=== PATIENT | female | born 1945 | race Caucasian/White ===

== ENCOUNTER 2022-06-12 12:10 | Inpatient (IN) ==
--- NOTE | 2022-06-12 13:06 | Emergency Department Note ---
Impression & Plan SOB (shortness of breath), Atrial fibrillation, Anemia, Elevated troponin ED Provider Note INFORMANT: Patient ED PROVIDER(S): Kar Gomez MD CHIEF COMPLAINT: Shortness of breath and weakness PLAN: Disposition: Admitted Condition: Good Outpatient prescription management: none Referral: None MEDICAL DECISION MAKING: Patient presented because of shortness of breath and weakness. Work-up was initiated. She had a nonischemic ECG. Her cardiac monitoring revealed stable A-fib. Chest x-ray was negative for any obvious infiltrate. The patient is anemic but only slightly worse than last visit. No leukocytosis. Troponin and BNP were mildly elevated. This is concerning for a cardiac etiology to her shortness of breath symptoms. Clinically the patient does not require transfusion at this time but will need further work-up in the hospital given her significant shortness of breath with minimal exertion and declined. Consultation was made with the [facility] service. Patient was evaluated in the ER and admitted for further management. Discussed with manager adult After review of the information above and other included data, I feel the patie nt requires admission. Triage Nursing notes reviewed and agree them. Vital Signs: reviewed and remarkable for no significant abnormalities Prior /Outside records reviewed: none Differential diagnosis: Anemia, reactive airway disease, pneumonia, pneumothorax, COPD, CHF, infections, cardiac ischemia, pulmonary embolism, musculoskeletal, GI bleed, as well as other pathologies. Diagnostics, as interpreted by me: ECG: Twelve-lead ECG reveals atrial fibrillation at 82 bpm. There is a lateral T wave inversion present. No ectopy. No prior ECG for comparison. Cardiac Monitoring: Cardiac monitoring ordered by me: The patient was placed on continuous cardiac monitoring and observed. It revealed a atrial fibrillation at 87 bpm. Medical decision rules: none Imaging studies: Cardiomegaly and atelectasis noted on chest x-ray. Patient has no fever, white count, or symptoms to suggest pneumonia. HPI: The patient is a 77 year old female who presents to the Emergency Room with complaints of shortness of breath and weakness. This started acutely over the last 3 days and is worsening.. The patient also notes the following associated symptoms, conversational dyspnea, fatigue. The patient has been using iron for relieving factors. Current pain is rated as 0 /10. patient has history of anemia. She also is anticoagulated. Patient had outpatient labs done last week and they showed a moderate anemia with hemoglobin of 8.3. She was then seen in the emergency department and repeat hemoglobin was stable. Patient states that she actually felt a little bit better the several days after the ED visit but then started to feel worse about 3 days ago. Pt denies LOC, headache, fevers, chills, diaphoresis, visual changes, neck pain, chest pain, nausea, vomiting, abdominal pain, back pain, current melena, hematochezia, urinary symptoms, numbness, lymphadenopathy, rash, or other complaints. PAST MEDICAL HISTORY: See Below, A-fib PAST SURGICAL HISTORY: See Below, carotid endarterectomy SOCIAL HISTORY: See Below, retired HOME MEDICATIONS: See Below ALLERGIES: See Below VITALS: See Below PHYSICAL EXAMINATION: GENERAL: Awake, alert, tired mildly pale-appearing, in no distress HENT: Normocephalic, atraumatic. Oropharynx unremarkable. EYES: Mildly pale conjunctiva. Sclera non-icteric. NECK: Inspection normal. Non-tender. Supple. No nuchal rigidity. FROM. No masses. RESPIRATORY: Clear to auscultation. No wheezes. No rales. Normal respiratory effort. CARDIAC: Normal rate. Normal rhythm. No murmurs. No rubs. Extremities warm and well perfused. Pulses equal. No JVD. GI: Soft, non-distended. No tenderness to palpation. No rebound or guarding. No masses. RECTAL: Deferred. MUSCULOSKELETAL: Atraumatic. Chest examination reveals no tenderness. The back is symmetrical on inspection without obvious abnormality. There is no CVA tenderness to palpation. No joint edema. LOWER EXTREMITIES: Calves are equal size bilaterally and non-tender. No edema. No discoloration. NEURO: Normal sensorium. No sensory or motor deficits noted. SKIN: No rash or jaundice noted. Past Med/Surg History Medical History Anxiety Atrial fibrillation Benign essential hypertension Cardiomyopathy Carotid stenosis, bilateral CKD stage 3 due to type 2 diabetes mellitus Dyslipidemia Hypothyroidism Intracranial vascular disease Major depressive disorder Mitral regurgitation and mitral stenosis Pulmonary hypertension Severe obesity Type 2 diabetes mellitus Vitamin D deficiency Surgical History H/O endarterectomy LEFT SIDE History of partial hysterectomy Status post trigger finger release Family History Father Colorectal cancer Mother Cancer Social History Smoking Status: Never smoker Hx Alcohol Use: No Hx Substance Use: No Preferred Language: Bruneian Visual Impairment: Limited Hearing Ability: Normal marital status: / Current Living Situation: Alone current occupational status: employed Other Information That Helps Us Care for You: No Feels Safe at Home: Yes Safety Concerns: Feels Safe At This Time Childhood Exposure to Second-Hand Smoke: No Dental Care, Regularly: No Physical Activity Frequency: Does not Exercise Seatbelt Use: always Sunscreen Use: Yes Assistive Devices: Denture - Upper, Denture - Lower and Glasses Allergies Allergies Allergy/AdvReac Type Severity Reaction Status Date / Time tizanidine Allergy Severe Edema Verified 05/31/22 10:25 face/lips/tongue sulfamethoxazole Allergy Mild itching Verified 05/31/22 10:25 [From Bactrim] trimethoprim [From Bactrim] Allergy Mild itching Verified 05/31/22 10:25 amlodipine Allergy Verified 05/31/22 10:25 hydrochlorothiazide AdvReac Mild Cracking Verified 05/31/22 10:25 of lips lisinopril AdvReac Unknown Verified 05/31/22 10:25 Home Meds Home Medications Medication Instructions Recorded Confirmed aspirin 81 mg tablet,delayed 81 mg PO DAILY 11/21/21 06/12/22 release (Adult Aspirin Regimen) vitamin B complex (B 1 tab PO DAILY 05/02/22 06/12/22 Complex-Vitamin B12 tablet) Previous Rx's Medication Instructions Recorded blood sugar diagnostic ([employer] #100 ea 03/17/21 Ultra Test strips) levothyroxine 25 mcg tablet 25 mcg PO DAILY #90 tabs 10/05/21 atorvastatin 80 mg tablet 80 mg PO DAILY #90 tabs 12/19/21 furosemide 40 mg tablet (Lasix) 40 mg PO DAILY PRN weight gain, 02/28/22 shortness of breath, swelling #30 tabs metoprolol succinate 50 mg 50 mg PO DAILY #90 tabs 03/23/22 tablet,extended release 24 hr apixaban 5 mg tablet (Eliquis) 5 mg PO BID #60 tabs 03/29/22 losartan 50 mg tablet 50 mg PO BID #60 tabs 03/29/22 escitalopram oxalate 5 mg tablet 5 mg PO DAILY #90 tabs 04/10/22 cholecalciferol (vitamin D3) 50 50 mcg PO DAILY #90 tabs 04/14/22 mcg (2,000 unit) tablet amlodipine 5 mg tablet 10 mg PO DAILY #60 tabs 05/31/22 ferrous gluconate 324 mg (38 mg 324 mg PO Q2D #30 tabs 06/01/22 iron) tablet Results & Data (ED) Vital Signs Vital Signs - 24 hr 06/12/22 12:25 06/12/22 12:30 06/12/22 12:46 Temperature 36.9 C Temperature Source Oral Pulse Rate 85 Pulse Rate [Right Apical] 87 Pulse Rate from SpO2 Sensor Pulse Rhythm Irregular Pulse Strength Normal Respiratory Rate 22 22 Respiratory Effort / Characteristics Non-Labored Respiratory Depth Normal Respiratory Pattern Regular Blood Pressure 170/71 H Blood Pressure [Right Arm] 170/71 H Blood Pressure Mean 104 Blood Pressure Mean [Right Arm] 104 Pulse Oximetry 96 98 Oxygen Delivery Method Room Air Room Air Room Air Sepsis Recent Fever Within 48 Hours No Sepsis New/Unexplained Change in Mental Status N/A Sepsis Action Taken by Nursing No Action Required 06/12/22 12:48 06/12/22 13:18 06/12/22 12:32 Temperature Temperature Source Pulse Rate 86 87 Pulse Rate [Right Apical] Pulse Rate from SpO2 Sensor 85 Pulse Rhythm Pulse Strength Respiratory Rate 21 Respiratory Effort / Characteristics Respiratory Depth Respiratory Pattern Blood Pressure Blood Pressure [Right Arm] Blood Pressure Mean Blood Pressure Mean [Right Arm] Pulse Oximetry 98 96 Oxygen Delivery Method Room Air Sepsis Recent Fever Within 48 Hours Sepsis New/Unexplained Change in Mental Status Sepsis Action Taken by Nursing 06/12/22 12:35 06/12/22 12:35 06/12/22 13:00 Temperature Temperature Source Pulse Rate 92 H Pulse Rate [Right Apical] Pulse Rate from SpO2 Sensor 93 H Pulse Rhythm Pulse Strength Respiratory Rate 20 Respiratory Effort / Characteristics Respiratory Depth Respiratory Pattern Blood Pressure 157/77 H 162/70 H Blood Pressure [Right Arm] Blood Pressure Mean 103 100 Blood Pressure Mean [Right Arm] Pulse Oximetry 94 Oxygen Delivery Method Sepsis Recent Fever Within 48 Hours Sepsis New/Unexplained Change in Mental Status Sepsis Action Taken by Nursing 06/12/22 13:00 06/12/22 13:30 06/12/22 13:30 Temperature Temperature Source Pulse Rate 81 76 Pulse Rate [Right Apical] Pulse Rate from SpO2 Sensor 84 80 Pulse Rhythm Pulse Strength Respiratory Rate 18 32 H Respiratory Effort / Characteristics Respiratory Depth Respiratory Pattern Blood Pressure 142/86 H Blood Pressure [Right Arm] Blood Pressure Mean 104 Blood Pressure Mean [Right Arm] Pulse Oximetry 92 94 Oxygen Delivery Method Sepsis Recent Fever Within 48 Hours Sepsis New/Unexplained Change in Mental Status Sepsis Action Taken by Nursing 06/12/22 14:00 06/12/22 14:01 06/12/22 14:01 Temperature Temperature Source Pulse Rate 85 77 Pulse Rate [Right Apical] Pulse Rate from SpO2 Sensor 93 H 83 Pulse Rhythm Pulse Strength Respiratory Rate 10 L Respiratory Effort / Characteristics Respiratory Depth Respiratory Pattern Blood Pressure 181/80 H Blood Pressure [Right Arm] Blood Pressure Mean 113 Blood Pressure Mean [Right Arm] Pulse Oximetry 90 96 Oxygen Delivery Method Sepsis Recent Fever Within 48 Hours Sepsis New/Unexplained Change in Mental Status Sepsis Action Taken by Nursing Laboratory Data 06/12/22 12:40 06/12/22 12:40 Lab Results 06/12/22 06/12/22 06/12/22 Range/Units 12:37 12:40 12:40 WBC 8.62 (4.8-10.8) K/ul RBC 3.04 L (4.20-5.40) M/uL Hgb 8.0 L (12.0-16.0) g/dl Hct 27.4 L (37.0-47.0) % MCV 90.1 (80.0-100.0) fL MCH 26.3 (25.0-34.0) pg MCHC 29.2 L (32.0-36.0) g/dL RDW Std Deviation 58.2 H (36.4-46.3) fL RDW Coeff of Pascual 17.7 H (11.5-14.5) % Plt Count 278 (130-400) K/uL MPV 11.0 (9.4-12.4) fL Immature Gran % (Auto) 0.2 % Neut % (Auto) 76.5 % Lymph % (Auto) 15.4 % Larue % (Auto) 7.2 % Eos % (Auto) 0.5 % Baso % (Auto) 0.2 % Neut # (Auto) 6.59 H (1.40-6.50) K/uL Lymph # (Auto) 1.33 (1.2-3.4) K/uL Larue # (Auto) 0.62 H (0.11-0.59) K/uL Eos # (Auto) 0.04 (0-0.50) K/uL Baso # (Auto) 0.02 (0-0.2) K/uL Immature Gran # (Auto) 0.02 (0.01-0.20) K/uL Sodium 140 (136-145) mmol/L Potassium 3.9 (3.5-5.1) mmol/L Chloride 106 (98-107) mmol/L Carbon Dioxide 26 (21-32) mmol/L Anion Gap 8 (3-11) BUN 18 (6-23) mg/dl Creatinine 1.04 (0.6-1.2) mg/dl Est Cr Clr Drug Dosing 47.6 ml/min Est GFR ( Amer) 59.6 ml/min Est GFR (Non-Af Amer) 51.4 ml/min BUN/Creatinine Ratio 17.3 (10-20) Glucose 118 H (70-99(Fasting)) mg/dl Calcium 9.4 (8.5-10.1) mg/dl Magnesium 2.0 (1.7-2.4) mg/dl Total Bilirubin 0.7 (0.2-1.0) mg/dl AST 17 (13-39) U/L ALT 9 (7-52) U/L Alkaline Phosphatase 109 H (34-104) U/L Troponin I High Sens 16.5 H (0-14) pg/ml Total Protein 7.0 (6.0-8.3) gm/dl Albumin 3.9 (3.4-5.0) gm/dl Globulin 3.1 (2.5-4.0) gm/dl Albumin/Globulin Ratio 1.3 (0.9-2) TSH (0.300-4.500) uIu/ml Urine Color Yellow Urine Appearance Clear (Clear) Urine pH 6.0 (4.5-7.5) Ur Specific Mcgehee 1.025 (1.000-1.030) Urine Protein 2+ H (Negative) Urine Glucose (UA) Negative (Negative) Urine Ketones Negative (Negative) Urine Blood Negative (Negative) Urine Nitrite Negative (Negative) Urine Bilirubin Negative (Negative) Urine Urobilinogen Negative (Negative) Ur Leukocyte Esterase Negative (Negative) Urine RBC 0-4 (0-4) /hpf Urine WBC 5-10 H (0-5) /hpf Ur Epithelial Cells 20-30 H (0-5) /lpf Amorphous Sediment Present A (None Prsent) Urine Bacteria Negative (Negative) Urine Mucus Present A (None Prsent) SARS-CoV-2, RNA, NAAT (NEGATIVE) 06/12/22 06/12/22 Range/Units 12:40 13:58 WBC (4.8-10.8) K/ul RBC (4.20-5.40) M/uL Hgb (12.0-16.0) g/dl Hct (37.0-47.0) % MCV (80.0-100.0) fL MCH (25.0-34.0) pg MCHC (32.0-36.0) g/dL RDW Std Deviation (36.4-46.3) fL RDW Coeff of Pascual (11.5-14.5) % Plt Count (130-400) K/uL MPV (9.4-12.4) fL Immature Gran % (Auto) % Neut % (Auto) % Lymph % (Auto) % Larue % (Auto) % Eos % (Auto) % Baso % (Auto) % Neut # (Auto) (1.40-6.50) K/uL Lymph # (Auto) (1.2-3.4) K/uL Larue # (Auto) (0.11-0.59) K/uL Eos # (Auto) (0-0.50) K/uL Baso # (Auto) (0-0.2) K/uL Immature Gran # (Auto) (0.01-0.20) K/uL Sodium (136-145) mmol/L Potassium (3.5-5.1) mmol/L Chloride (98-107) mmol/L Carbon Dioxide (21-32) mmol/L Anion Gap (3-11) BUN (6-23) mg/dl Creatinine (0.6-1.2) mg/dl Est Cr Clr Drug Dosing ml/min Est GFR ( Amer) ml/min Est GFR (Non-Af Amer) ml/min BUN/Creatinine Ratio (10-20) Glucose (70-99(Fasting)) mg/dl Calcium (8.5-10.1) mg/dl Magnesium (1.7-2.4) mg/dl Total Bilirubin (0.2-1.0) mg/dl AST (13-39) U/L ALT (7-52) U/L Alkaline Phosphatase (34-104) U/L Troponin I High Sens (0-14) pg/ml Total Protein (6.0-8.3) gm/dl Albumin (3.4-5.0) gm/dl Globulin (2.5-4.0) gm/dl Albumin/Globulin Ratio (0.9-2) TSH 3.352 (0.300-4.500) uIu/ml Urine Color Urine Appearance (Clear) Urine pH (4.5-7.5) Ur Specific Mcgehee (1.000-1.030) Urine Protein (Negative) Urine Glucose (UA) (Negative) Urine Ketones (Negative) Urine Blood (Negative) Urine Nitrite (Negative) Urine Bilirubin (Negative) Urine Urobilinogen (Negative) Ur Leukocyte Esterase (Negative) Urine RBC (0-4) /hpf Urine WBC (0-5) /hpf Ur Epithelial Cells (0-5) /lpf Amorphous Sediment (None Prsent) Urine Bacteria (Negative) Urine Mucus (None Prsent) SARS-CoV-2, RNA, NAAT NEGATIVE (NEGATIVE) Administered Medications Amlodipine Besylate (Amlodipine Besylate 5 Mg Tab) 10 mg PO DAILY [facility] Stop: 07/13/22 08:59 Last Admin: 06/13/22 08:10 Dose: 10 mg Documented By: VIVIAN Apixaban (Apixaban 5 Mg Tablet) 5 mg PO BID [facility] Stop: 07/12/22 20:59 Last Admin: 06/13/22 08:10 Dose: 5 mg Documented By: Admin: 06/12/22 20:43 Dose: 5 mg Documented By: MELISSA Aspirin (Aspirin 81 Mg Ectab) 81 mg PO DAILY [facility] Stop: 07/13/22 08:59 Last Admin: 06/13/22 08:10 Dose: 81 mg Documented By: SM Atorvastatin Calcium (Atorvastatin 40 Mg Tab) 80 mg PO DAILY [facility] Stop: 07/13/22 08:59 Last Admin: 06/13/22 08:10 Dose: 80 mg Documented By: VIVIAN Escitalopram Oxalate (Escitalopram Oxalate 10 Mg Tab) 5 mg PO DAILY [facility] Stop: 07/13/22 08:59 Last Admin: 06/13/22 08:10 Dose: 5 mg Documented By: VIVIAN Ferrous Gluconate (Ferrous Gluconate 324 Mg Tab) 324 mg PO Q2D [facility] Stop: 07/12/22 16:18 Last Admin: 06/12/22 17:19 Dose: 324 mg Documented By: GE Furosemide (Furosemide 40 Mg/4 Ml Vial) 40 mg IV DAILY [facility] Stop: 07/12/22 15:59 Last Admin: 06/13/22 08:21 Dose: 40 mg Documented By: Admin: 06/12/22 16:58 Dose: 40 mg Documented By: GE Insulin Aspart (Insulin Aspart Per Unit) 0 units SC ACHS [facility] Stop: 07/12/22 16:29 Last Admin: 06/13/22 08:10 Dose: Not Given Documented By: Admin: 06/12/22 20:46 Dose: Not Given Documented By: Admin: 06/12/22 16:57 Dose: Not Given Documented By: GE Insulin Glargine (Lantus Per Unit Charge) 5 units SQ BID [facility] Stop: 07/12/22 20:59 Last Admin: 06/13/22 08:11 Dose: Not Given Documented By: Admin: 06/12/22 20:58 Dose: Not Given Documented By: MELISSA Levothyroxine Sodium (Levothyroxine Sodium 25 Mcg Tablet) 25 mcg PO DAILY [facility] Stop: 07/13/22 08:59 Last Admin: 06/13/22 07:30 Dose: 25 mcg Documented By: VIVIAN Losartan Potassium (Losartan Potassium 50 Mg Tab) 50 mg PO BID [facility] Stop: 07/12/22 20:59 Last Admin: 06/13/22 08:10 Dose: 50 mg Documented By: Admin: 06/12/22 20:45 Dose: 50 mg Documented By: MELISSA Melatonin (Melatonin 3 Mg Tab) 3 mg PO HS PRN PRN Reason: Sleep Stop: 07/12/22 20:54 Last Admin: 06/12/22 21:02 Dose: 3 mg Documented By: MELISSA Metoprolol Succinate (Metoprolol Succ 50mg Ext Rel Tab) 50 mg PO DAILY [facility] Stop: 07/13/22 08:59 Last Admin: 06/13/22 08:10 Dose: 50 mg Documented By: VIVIAN Discontinued Medications Furosemide (Furosemide 40 Mg Tab) 40 mg PO QAM [facility] Stop: 07/12/22 15:14 Last Admin: 06/12/22 16:41 Dose: Not Given Documented By: SJW Discharge Plan Visit Data Chief Complaint: Weakness ED Provider: Kar Gomez Discharge Problem: SOB (shortness of breath), Atrial fibrillation, Anemia, Elevated troponin Patient Disposition: Admitted As Inpatient Discharge Instructions Interventions: ED Discharge Assessment Last Done: 06/12/22 15:56
--- NOTE | 2022-06-12 13:10 | XRay Report ---
XR chest 1V portable CLINICAL HISTORY: weakness TECHNIQUE: Single frontal radiograph of the chest was obtained. Comparison: None available at the time of this dictation. FINDINGS: Exam is limited by underpenetration. Calcified aortic knob is seen. Faint right lower lung airspace o pacity noted. Likely small bilateral pleural effusions. IMPRESSION: Cardiomegaly is seen with small bilateral pleural effusions. Right lower lung airspace opacity may re present atelectasis, pneumonia, and/or aspiration. ACT 112: Negative or not required by law. Electronically signed by: Scottie Pearl M.D. 06/12/2022 1:09 PM
[2022-06-12 13:20] LABS: Basophils # (auto) 0.02 K/uL (0-0.2); Basophils % (auto) 0.2 %; Eosinophils # (auto) 0.04 K/uL (0-0.50); Eosinophils % (auto) 0.5 %; Hematocrit (blood only) 27.4 % (37.0-47.0); Immature Granulocytes # (auto) 0.02 K/uL (0.01-0.20); Immature Granulocytes % (auto) 0.2 %; Lymphocytes # (auto) 1.33 K/uL (1.2-3.4); Lymphocytes % (auto) 15.4 %; Mean Corpuscular Hemoglobin 26.3 pg (25.0-34.0); Mean Corpuscular Hgb Conc 29.2 g/dL (32.0-36.0); Mean Corpuscular Volume 90.1 fL (80.0-100.0); Monocytes # (auto) 0.62 K/uL (0.11-0.59); Monocytes % (auto) 7.2 %; Neutrophils # (auto) 6.59 K/uL (1.40-6.50); Neutrophils % (auto) 76.5 %; Platelet Count 278 K/uL (130-400); RDW Coefficient of Variation 17.7 % (11.5-14.5); RDW Standard Deviation 58.2 fL (36.4-46.3); Red Blood Count 3.04 M/uL (4.20-5.40); White Blood Count 8.62 K/ul (4.8-10.8)
[2022-06-12 13:27] LABS: Albumin Level 3.9 gm/dl (3.4-5.0); Bilirubin,Total 0.7 mg/dl (0.2-1.0); Calcium 9.4 mg/dl (8.5-10.1); Potassium 3.9 mmol/L (3.5-5.1)
[2022-06-12 13:33] LABS: Albumin Globulin Ratio 1.3 (0.9-2); BUN Creatinine Ratio 17.3 (10-20); Creatinine Clr Calc Pharmacy 47.6 ml/min; Est GFR (African American) 59.6 ml/min; Est GFR (Non-African American) 51.4 ml/min; Globulin 3.1 gm/dl (2.5-4.0)
[2022-06-12 13:38] LABS: Appearance Urine Clear (Clear); Bilirubin Urine Negative (Negative); Blood Urine Negative (Negative); Color Urine Yellow; Glucose Urine UA Negative (Negative); Ketones Urine Negative (Negative); Leukocyte Esterase Urine Negative (Negative); Nitrite Urine Negative (Negative); Protein Urine 2+ (Negative); Specific Gravity Urine 1.025 (1.000-1.030); Urobilinogen Urine Negative (Negative)
[2022-06-12 13:39] LABS: Troponin I High Sensitivity 16.5 pg/ml (0-14)
[2022-06-12 13:44] LABS: Epithelial Cell Urine 20-30 /lpf (0-5); Mucus Urine Present (None Prsent); RBC Urine 0-4 /hpf (0-4)
[2022-06-12 13:46] LABS: Amorphous Sediment Urine Present (None Prsent); Bacteria Urine Negative (Negative)
--- NOTE | 2022-06-12 14:05 | History & Physical Report ---
Date of Service June 12, 2022 Assessment & Plan (1) Shortness of breath: Plan: -Admit to med/tele -The patient is currently afebrile, hemodynamically stable, stable on RA, and asymptomatic at rest -At this time the etiology of the patient's LAZO is unclear but includes but is not limited to Coronary artery disease, valvular disease/CHF, restrictive lung disease, symptomatic anemia -The patient has experienced progressive LAZO over the past 2 months, no previous cardiac history but was found to have significant atherosclerotic disease of her BL Carotids last year with her stroke -The patient's hgb is currently stable at 8.0 today but down from 12.2 as of 03/21/22 and is currently on Eliquis due to afib. Previously was noted to have melena before her last ED visit on 06/01/22, her melena resolved. She does note melena recently but his only restarted after she was started on PO iron -Her PCP was working to coordinate an outpatient stress test but this has yet to be scheduled -Initial high sensitivity trop elevated at 16.5, 2 hour repeat in currently in p rocess, ECG today showing ST depression and T-wave inversions in the lateral leads, does not appear to have these ST depressions in her last ECG -Will continue to trend high sensitivity trops overnight, monitor on tele and pulse oximetry -BNP today elevated at 899, no previous level to compare to, with small BL pleural effusions on CXR, likely has some component of CHF -Will start 40 mg IV daily lasix now as she had been on prn outpatient -Likely can still get a Dobutamine stress echo outpatient -Low suspicion for infectious cause at this time as she is without leukocytosis and stable on RA -Does not appear that she is having an active GI bleed as her BUN is WNL and melena only restarted after being started on iron, for now will continue Eliquis and monitor >Transferrin saturation noted to be 6 on 05/31 with iron level of 29 and ferritin of 14.8, if the rest of her workup is negative could also consider giving her Venofer prior to discharge -BL SCD's and home Eliquis for DVT PPX -AM CBC, CMP, Mag, PT/INR (2) Anemia: Plan: -Currently stable -Continue PO iron (3) Type 2 diabetes mellitus: Plan: -Hold metformin -Monitor BSG ACHS, goal is 110-140 -Start with 5 units lantus BID, correction factor of 50 with carb ratio of 15 -Adjust regimen as needed (4) Benign essential hypertension: Plan: -Noted to be hypertensive upon arrival but asymptomatic -Continue amlodipine, metoprolol, and Losartan (5) Dyslipidemia: Plan: -Continue statin (6) Atrial fibrillation: Plan: -Currently rate controlled -Continue metoprolol and Eliquis (7) CVA (cerebral vascular accident): Plan: -No residual weakness -Continue Aspirin, statin, and Eliquis (8) Carotid stenosis, bilateral: Plan: -S/P left carotid endarterectomy at [facility] in November of 2021 -Continue aspirin, Eliquis, and statin (9) Hypothyroidism: Plan: -TSH WNL today -Continue levothyroxine (10) Major depressive disorder: Plan: -Continue Lexapro Plan The patient was discussed with Dr. Huber at the time of the admission History of Present Illness Chief Complaint: SOB and generalized weakness Primary Care Provider: YADIEL Garzan is a 77 year old female with a PMH significant for recent CVA in October of 2021 without residual weakness, BL carotid artery stenosis S/P left carotid endarterectomy at [facility] in November of 2021, afib on Eliquis, HFpEF (LVEF of 60-65%, and very small pericardial effusion without tamponade as of 05/05/22), HTN, dyslipidemia, DMII, Stage 3 CKD, hypothyroidism, MDD, and anemia who presented to the [facility] ED on 06/12/22 with a chief complaint of SOB and weakness. In the ED the patient was found to be afebrile, initially hypertensive at 170/71, and stable on RA. Labs were remarkable for a CBC with WBC WNL, Hgb of 8.0 (down from 8.3 as of 05/31/22), stable platelets, stable cr at 1.04, BUN of 18, stable electrolytes, Alk phos of 109 (down from 130 as of 06/01/22), initial high sensitivity trop of 16.5, TSH WNL, and UA not suggestive of UTI. Chest xray was read as "Cardiomegaly is seen with small bilateral pleural effusions. Right lower lung airspace opacity may represent atelectasis, pneumonia, and/or aspiration.". Per chart review, the patient was last seen in the [facility] ED on 06/01/22 due to a drop in Hgb from 12 (on 03/21/22) to 8.3 (on 05/31/22) on outpatient testing. She saw her PCP on 05/31/22 due to progressive LAZO and BL leg weakness. Per the clinic note, they were going to talk with Cardiology about scheduling stress testing and had ordered routine labs at that time. Her Hgb came back at 8.3 and there was a recent history of black stools on Eliquis, therefore she was sent to the ED for further evaluation. In the ED the patient was found to be stable with a stable Hgb and Guaiac negative stool. She was discharged home with a prescription for 324 mg PO Ferrous Gluconate BID. AT the time of the exam the patient was resting in no acute distress with her [id number] in no acute distress, history was obtained from both. The patient states that she has experienced progressive LAZO over the past 2 months. She states that at the present time she cannot walk more than a few feet without getting significant SOB. At rest she is asymptomatic and she has been without chest discomfort over the past two months. She denies recent fevers, chills, changes in vision, hearing, taste, and smell, chest pain, cough, pleuritic chest pain, abd pain, nausea, vomiting, diarrhea, dysuria, hematuria, bloody bowel movements, LE swelling and recent trauma. She explains that prior to her CVA last year she was only on natural medications. She denies a previous history of heart disease, CHF, DE, tobacco use, and pulmonary disease. She has had a good appetite and denies recent unintentional weight loss. She has a PRN prescription when she notices increased abdominal swelling, her last dose was approximately 3 days ago. When asked, the patient denies recent abdominal swelling. Since her stroke last year she feels as though she has been more sedentary and not as active. She states that she noticed black stool prior to her PCP appointment on 05/31. They cleared up since but she has noticed them again since being started on oral iron. We discussed code status, she states that she has a living will and wishes to be a DNR/DNI. Please refer to Dr. Huber's attestation for any changes to the treatment plan Allergies Allergy/AdvReac Type Severity Reaction Status Date / Time tizanidine Allergy Severe Edema Verified 05/31/22 10:25 face/lips/tongue sulfamethoxazole Allergy Mild itching Verified 05/31/22 10:25 [From Bactrim] trimethoprim [From Bactrim] Allergy Mild itching Verified 05/31/22 10:25 amlodipine Allergy Verified 05/31/22 10:25 hydrochlorothiazide AdvReac Mild Cracking Verified 05/31/22 10:25 of lips lisinopril AdvReac Unknown Verified 05/31/22 10:25 Home Medications Medication Instructions Recorded Confirmed Type blood sugar diagnostic (OneTouch #100 ea 03/17/21 05/31/22 Rx Ultra Test strips) levothyroxine 25 mcg tablet 25 mcg PO DAILY #90 tabs 10/05/21 06/12/22 Rx aspirin 81 mg tablet,delayed 81 mg PO DAILY 11/21/21 06/12/22 History release (Adult Aspirin Regimen) atorvastatin 80 mg tablet 80 mg PO DAILY #90 tabs 12/19/21 06/12/22 Rx furosemide 40 mg tablet (Lasix) 40 mg PO DAILY PRN weight gain, 02/28/22 06/12/22 Rx shortness of breath, swelling #30 tabs metoprolol succinate 50 mg 50 mg PO DAILY #90 tabs 03/23/22 06/12/22 Rx tablet,extended release 24 hr apixaban 5 mg tablet (Eliquis) 5 mg PO BID #60 tabs 03/29/22 06/12/22 Rx losartan 50 mg tablet 50 mg PO BID #60 tabs 03/29/22 06/12/22 Rx escitalopram oxalate 5 mg tablet 5 mg PO DAILY #90 tabs 04/10/22 06/12/22 Rx cholecalciferol (vitamin D3) 50 50 mcg PO DAILY #90 tabs 04/14/22 06/12/22 Rx mcg (2,000 unit) tablet vitamin B complex (B 1 tab PO DAILY 05/02/22 06/12/22 History Complex-Vitamin B12 tablet) amlodipine 5 mg tablet 10 mg PO DAILY #60 tabs 05/31/22 06/12/22 Rx ferrous gluconate 324 mg (38 mg 324 mg PO Q2D #30 tabs 06/01/22 06/12/22 Rx iron) tablet Past Med/Surg History Medical History Anxiety Atrial fibrillation Benign essential hypertension Cardiomyopathy Carotid stenosis, bilateral CKD stage 3 due to type 2 diabetes mellitus Dyslipidemia Hypothyroidism Intracranial vascular disease Major depressive disorder Mitral regurgitation and mitral stenosis Pulmonary hypertension Severe obesity Type 2 diabetes mellitus Vitamin D deficiency Surgical History H/O endarterectomy LEFT SIDE History of partial hysterectomy Status post trigger finger release Family History Father Colorectal cancer Mother Cancer Social History Smoking Status: Never smoker Hx Alcohol Use: No Hx Substance Use: No Preferred Language: Russian Visual Impairment: Limited Hearing Ability: Normal marital status: / Current Living Situation: Alone current occupational status: employed Feels Safe at Home: Yes Childhood Exposure to Second-Hand Smoke: No Dental Care, Regularly: No Physical Activity Frequency: Does not Exercise Seatbelt Use: always Sunscreen Use: Yes Review of Systems Review of Systems: Denies current fever, chills, headache, changes in vision, hearing, taste, and smell, chest pain, cough, abdominal pain, nausea, vomiting, diarrhea, hematemesis,dysuria, hematuria, and recent falls. All systems have been reviewed and are otherwise negative. Physical Exam Physical Exam: Physical Exam: General: In no acute distress, stated age, well-nourished, non-toxic appearing HEENT: Normocephalic, atraumatic, no scleral icterus, pupils around round, symmetrical, and reactive to light, moist mucus membranes, trachea midline, no thyromegaly Chest/Pulm: No respiratory distress, symmetrical chest expansion, decreased breath sounds in the BL lower lung prado Cardiac: irregular rate and rhythm, no murmurs noted Abdomen: Negative for ascites and bruising, normoactive bowel sounds, soft, non-tender to palpation throughout Musculoskeletal: Symmetrical and without signs of acute trauma, upper and lower extremities with full ROM, no atrophy, spasticity, or flaccidity Extremities: Radial, dorsalis pedis, and posterior tibial pulses are intact and symmetrical, no edema noted in the BL LE's Skin: Warm, dry, no rashes , lesions, or scars noted Neuro: Alert and oriented to person, place, month, year, and president, no focal defects, CN II-XII tested and intact, no tremors noted Psych: No acute distress, calm and cooperative during the exam Results & Data Results & Data Vital Signs (Past 12 Hours) Vital Signs Temp Pulse Pulse Resp BP BP Pulse Ox 06/12/22 13:18 86 06/12/22 12:48 98 06/12/22 12:46 06/12/22 12:30 87 22 170/71 H 98 06/12/22 12:25 36.9 C 85 22 170/71 H 96 O2 Del Method 06/12/22 13:18 06/12/22 12:48 Room Air 06/12/22 12:46 Room Air 06/12/22 12:30 Room Air 06/12/22 12:25 Room Air Laboratory Results Abnormal lab results 06/12/22 06/12/22 06/12/22 Range/Units 12:37 12:40 12:40 RBC 3.04 L (4.20-5.40) M/uL Hgb 8.0 L (12.0-16.0) g/dl Hct 27.4 L (37.0-47.0) % MCHC 29.2 L (32.0-36.0) g/dL RDW Std Deviation 58.2 H (36.4-46.3) fL RDW Coeff of Pascual 17.7 H (11.5-14.5) % Neut # (Auto) 6.59 H (1.40-6.50) K/uL Traverse # (Auto) 0.62 H (0.11-0.59) K/uL Glucose 118 H (70-99(Fasting)) mg/dl Alkaline Phosphatase 109 H (34-104) U/L Troponin I High Sens 16.5 H (0-14) pg/ml Urine Protein 2+ H (Negative) Urine WBC 5-10 H (0-5) /hpf Ur Epithelial Cells 20-30 H (0-5) /lpf Amorphous Sediment Present A (None Prsent) Urine Mucus Present A (None Prsent) Diagnostic Findings Chest X-Ray 06/12/22 12:29 XR chest 1V portable CLINICAL HISTORY: weakness TECHNIQUE: Single frontal radiograph of the chest was obtained. Comparison: None available at the time of this dictation. FINDINGS: Exam is limited by underpenetration. Calcified aortic knob is seen. Faint right lower lung airspace opacity noted. Likely small bilateral pleural effusions. IMPRESSION: Cardiomegaly is seen with small bilateral pleural effusions. Right lower lung airspace opacity may represent atelectasis, pneumonia, and/or aspiration. ACT 112: Negative or not required by law. Electronically signed by: Scottie Pearl M.D. 06/12/2022 1:09 PM ECG Additional Comments: Atrial fibrillation ST & T wave abnormality, consider lateral ischemia Abnormal ECG No previous ECGs available Code Status & VTE Plan Code Status DNR/DNI VTE Prophylaxis Plan VTE Prophylaxis will be ordered: Yes Supervising Physician Co-Signing Physician Notes Patient seen and examined, chart reviewed, case discussed with Nimesh Eller PA-C and I agree with the assessment and plan as above except as otherwise noted Labs and images reviewed Brittney is a 77-year-old female seen at bedside with her daughter, she presents with progressive shortness of breath on exertion, bilateral leg weakness, fatigue and worsened orthopnea. She reports she is so short of breath after ambulating just a couple of feet that she has difficulty getting around. Her shortness of breath is much worse when laying flat and improves somewhat sitting up. She has not had any recurrent melena, notes her iron is dark since starting iron supplements. She has not had any further bleeding. Her lungs are diminished with crackles in the bases, has mild ankle edema bilaterally. Heart rate is regular. Discussed with WILLIE, agree with plan of care. Suspect overall her symptoms are related to acute CHF, x-ray appears overloaded with an elevated BNP and she has prominent orthopnea. We will treat with Lasix at this time. Reasonable to continue echo/stress. Do not think that she is actively bleeding and that further drop in hemoglobin is contributing to her symptoms, but she remains consistently anemic. Given diminished diet and iron every other day will likely take a long time to replete stores, she would benefit from Venofer infusion while inpatient. Transferrin saturation was only 6%. Recommend 300 mg daily dose up to 900 mg total pending her length of stay. Otherwise agree with above. PG Care Time/CCT Total # of Minutes Spent Total Time Spent with Patient: Total time spent is greater than 50% in coordination of care (as documented) at patient's floor/unit and/or counseling patient: Coding [place] [address] INT INP/OBS CARE 75MIN Patient Type Established Medical Decision Making High Complexity Diagnoses Shortness of breath R06.02 Anemia D64.9 Type 2 diabetes mellitus E11.9 Diabetes mellitus complication status: without complication Diabetes mellitus watermaster insulin use: without alf use Benign essential hypertension I10 Dyslipidemia E78.5 Atrial fibrillation I48.91 CVA (cerebral vascular accident) I63.9 Carotid stenosis, bilateral I65.23 Hypothyroidism E03.9 Hypothyroidism type: unspecified Major depressive disorder F33.41 Active/Remission status: in partial remission Major depression recurrence: recurrent (3) Type 2 diabetes mellitus Diabetes mellitus complication status: without complication Diabetes mellitus watermaster insulin use: without watermaster use Qualified Code(s): E11.9 - Type 2 diabetes mellitus without complications (9) Hypothyroidism Hypothyroidism type: unspecified Qualified Code(s): E03.9 - Hypothyroidism, unspecified (10) Major depressive disorder Active/Remission status: in partial remission Major depression recurrence: recurrent Qualified Code(s): F33.41 - Major depressive disorder, recurrent, in partial remission
[2022-06-12] MEDS ORDERED: GLUCOSE 40% GEL 15 GM TUBE PO PRN (14:13)
[2022-06-12] MEDS ORDERED: GLUCOSE 10 TAB/TUBE PO PRN (14:13)
[2022-06-12] MEDS ORDERED: CARBOHYDRATES FOR HYPOGLYCEMIA PO PRN (14:13)
[2022-06-12] MEDS ORDERED: GLUCAGON FOR INJ 1 MG VIAL SQ PRN (14:13)
[2022-06-12] MEDS ORDERED: DEXTROSE 50% 50 ML SYRINGE IV PRN (14:13)
[2022-06-12] MEDS ORDERED: ALBUT/IPRATROP 3MG/0.5MG NEB 3 ML VIAL NEB PRN (14:57)
[2022-06-12] MEDS ORDERED: FUROSEMIDE 40 MG TAB PO SCH (15:15)
--- NOTE | 2022-06-12 15:20 | Electrocardiogram Report ---
Test Reason : Blood Pressure : / mmHG Vent. Rate : 082 BPM Atrial Rate : 104 BPM P-R Int : 000 ms QRS Dur : 092 ms QT Int : 354 ms P-R-T Axes : 000 027 166 degrees QTc Int : 413 ms Atrial fibrillation Abnormal ECG No previous ECGs available Confirmed by Angel Camilo ([id number]) on 06/12/2022 3:20:19 PM Referred By: ED Confirmed By:Timur Camilo
[2022-06-12] MEDS: INSULIN ASPART PER UNIT CHARGE SC SCH ×2 (16:57→20:46)
[2022-06-12] MEDS: FUROSEMIDE 40 MG/4 ML VIAL IV SCH (16:58)
[2022-06-12] MEDS: FERROUS GLUCONATE 324 MG TAB PO SCH (17:19)
[2022-06-12] MEDS: APIXABAN 5 MG TABLET PO SCH (20:43)
[2022-06-12] MEDS: LOSARTAN POTASSIUM 50 MG TAB PO SCH (20:45)
[2022-06-12] MEDS: LANTUS PER UNIT CHARGE SQ SCH (20:58)
[2022-06-12] MEDS: MELATONIN 3 MG TAB PO PRN (21:02)
[2022-06-13 02:39] LABS: Basophils # (auto) 0.02 K/uL (0-0.2); Basophils % (auto) 0.3 %; Eosinophils # (auto) 0.13 K/uL (0-0.50); Eosinophils % (auto) 1.9 %; Hematocrit (blood only) 25.3 % (37.0-47.0); Hemoglobin 7.4 g/dl (12.0-16.0); Immature Granulocytes # (auto) 0.02 K/uL (0.01-0.20); Immature Granulocytes % (auto) 0.3 %; Lymphocytes # (auto) 1.53 K/uL (1.2-3.4); Lymphocytes % (auto) 22.2 %; Mean Corpuscular Hemoglobin 25.8 pg (25.0-34.0); Mean Corpuscular Hgb Conc 29.2 g/dL (32.0-36.0); Mean Corpuscular Volume 88.2 fL (80.0-100.0); Monocytes # (auto) 0.71 K/uL (0.11-0.59); Monocytes % (auto) 10.3 %; Neutrophils # (auto) 4.49 K/uL (1.40-6.50); Platelet Count 256 K/uL (130-400); RDW Coefficient of Variation 17.9 % (11.5-14.5); RDW Standard Deviation 58.1 fL (36.4-46.3); Red Blood Count 2.87 M/uL (4.20-5.40)
[2022-06-13 02:48] LABS: Albumin Globulin Ratio 1.2 (0.9-2); Albumin Level 3.6 gm/dl (3.4-5.0); BUN Creatinine Ratio 16.2 (10-20); Bilirubin,Total 0.7 mg/dl (0.2-1.0); Calcium 9.4 mg/dl (8.5-10.1); Creatinine Clr Calc Pharmacy 39.2 ml/min; Est GFR (African American) 55.1 ml/min; Est GFR (Non-African American) 47.5 ml/min; Globulin 2.9 gm/dl (2.5-4.0); Magnesium 1.8 mg/dl (1.7-2.4); Potassium 3.6 mmol/L (3.5-5.1); Total Protein 6.5 gm/dl (6.0-8.3)
[2022-06-13 02:58] LABS: INR 1.2 (0.9-1.1)
[2022-06-13 03:01] LABS: Polychromasia 1+
[2022-06-13] MEDS: LEVOTHYROXINE SODIUM 25 MCG TABLET PO SCH (07:30)
[2022-06-13] MEDS: INSULIN ASPART PER UNIT CHARGE SC SCH ×4 (08:10→20:28)
[2022-06-13] MEDS: METOPROLOL SUCC 50MG EXT REL TAB PO SCH (08:10)
[2022-06-13] MEDS: ATORVASTATIN 40 MG TAB PO SCH (08:10)
[2022-06-13] MEDS: ASPIRIN 81 MG ECTAB PO SCH (08:10)
[2022-06-13] MEDS: amLODIPine BESYLATE 5 MG TAB PO SCH (08:10)
[2022-06-13] MEDS: LOSARTAN POTASSIUM 50 MG TAB PO SCH ×2 (08:10→20:37)
[2022-06-13] MEDS: APIXABAN 5 MG TABLET PO SCH (08:10)
[2022-06-13] MEDS: ESCITALOPRAM OXALATE 10 MG TAB PO SCH (08:10)
[2022-06-13] MEDS: LANTUS PER UNIT CHARGE SQ SCH ×2 (08:11→20:29)
[2022-06-13] MEDS: FUROSEMIDE 40 MG/4 ML VIAL IV SCH (08:21)
--- NOTE | 2022-06-13 12:36 | Hospitalist Progress Note ---
Date of Service June 13, 2022 Assessment & Plan (1) Shortness of breath: Plan: -On exertion Unclear etiology Not hypoxic, not short of breath at rest. Hemodynamically stable. Patient has experienced progressive dyspnea on exertion over the past 2 months. On admission, she was noted to have bilateral pleural effusion, elevated BNP and that she was ordered a dose of Lasix. With diuretic therapy, she has not noticed any improvement in her shortness of breath on exertion. Today her hemoglobin is 7.4. Noted that her hemoglobin has been trending down slowly since February 2022 from 12 to now 7.4. She is on Eliquis and has reported some black stools in the past 2 to 3 days. Her iron pills were blamed for her black stools. Since she has not noticed any clinical response to the diuretic therapy, I would like to explore her anemia as a reason for her dyspnea on exertion. I will order a unit of blood. I will hold her Eliquis Have ordered stool guaiac. Ordered an echocardiogram We will consider a stress test in near future (2) Anemia: Plan: -Hemoglobin dropped further to 7.4 today Patient reports black stools in the last few days We will hold Eliquis We will transfuse a unit of blood since she is symptomatic with shortness of breath on exertion. Transfusion consent in the chart. Check fecal occult blood test -Continue PO iron (3) Type 2 diabetes mellitus: Plan: -Hold metformin -Monitor BSG ACHS, goal is 110-140 -Start with 5 units lantus BID, correction factor of 50 with carb ratio of 15 -Adjust regimen as needed (4) Benign essential hypertension: Plan: -Blood pressure stable -Continue amlodipine, metoprolol, and Losartan (5) Dyslipidemia: Plan: -Continue statin (6) Atrial fibrillation: Plan: -Currently rate controlled -Continue metoprolol Hold Eliquis in the setting of black stools, dyspnea on exertion, worsening anemia (7) CVA (cerebral vascular accident): Plan: -No residual weakness -Continue Aspirin, statin Hold Eliquis because anemic, has black stools, has shortness of breath on exertion (8) Carotid stenosis, bilateral: Plan: -S/P left carotid endarterectomy at [facility] in November of 2021 -Continue aspirin, statin Hold Eliquis (9) Hypothyroidism: Plan: -TSH WNL today -Continue levothyroxine (10) Major depressive disorder: Plan: -Continue Lexapro Plan The patient was discussed with Dr. Huber at the time of the admission Admission and Anticipated Discharge Date Admission Date: June 12, 2022 Subjective Patient says that she is not feeling a whole lot better compared to yesterday. She is still got winded when she came back from the bathroom. Review of Systems Review of Systems: All systems reviewed & are unremarkable except as noted in Subjective Physical Exam Physical Exam: General: Awake, conversant Heart: S1, S2/regular rate and rhythm, no murmur rubs or gallops Lungs: Clear to auscultation bilaterally. Normal effort Abdomen: Soft/nontender/nondistended. No hepatosplenomegaly Extremities: No clubbing/cyanosis. No edema Behavior: Appropriate, cooperative Results & Data Results & Data Vital Signs (Past 12 Hours) Vital Signs Temp Pulse Pulse Resp BP BP Pulse Ox 06/13/22 11:00 36.8 C 83 18 132/68 94 06/13/22 10:00 06/13/22 07:23 36.7 C 76 18 134/68 92 06/13/22 07:12 81 06/13/22 04:37 93 06/13/22 03:42 36.5 C 81 16 103/65 90 06/13/22 00:51 81 O2 Del Method 06/13/22 11:00 Room Air 06/13/22 10:00 Room Air 06/13/22 07:23 Room Air 06/13/22 07:12 06/13/22 04:37 Room Air 06/13/22 03:42 Room Air 06/13/22 00:51 Laboratory Results Abnormal lab results 06/12/22 06/12/22 06/12/22 Range/Units 12:37 12:40 12:40 RBC 3.04 L (4.20-5.40) M/uL Hgb 8.0 L (12.0-16.0) g/dl Hct 27.4 L (37.0-47.0) % MCHC 29.2 L (32.0-36.0) g/dL RDW Std Deviation 58.2 H (36.4-46.3) fL RDW Coeff of Pascual 17.7 H (11.5-14.5) % Neut # (Auto) 6.59 H (1.40-6.50) K/uL Lincoln # (Auto) 0.62 H (0.11-0.59) K/uL PT (9.0-12.0) Seconds INR (0.9-1.1) Glucose 118 H (70-99(Fasting)) mg/dl POC Glucose (70-99) mg/dl Alkaline Phosphatase 109 H (34-104) U/L Troponin I High Sens 16.5 H (0-14) pg/ml B-Natriuretic Peptide (0-100) pg/ml Urine Protein 2+ H (Negative) Urine WBC 5-10 H (0-5) /hpf Ur Epithelial Cells 20-30 H (0-5) /lpf Amorphous Sediment Present A (None Prsent) Urine Mucus Present A (None Prsent) 06/12/22 06/12/22 06/12/22 Range/Units 14:13 14:43 16:47 RBC (4.20-5.40) M/uL Hgb (12.0-16.0) g/dl Hct (37.0-47.0) % MCHC (32.0-36.0) g/dL RDW Std Deviation (36.4-46.3) fL RDW Coeff of Pascual (11.5-14.5) % Neut # (Auto) (1.40-6.50) K/uL Lincoln # (Auto) (0.11-0.59) K/uL PT (9.0-12.0) Seconds INR (0.9-1.1) Glucose (70-99(Fasting)) mg/dl POC Glucose 118 H (70-99) mg/dl Alkaline Phosphatase (34-104) U/L Troponin I High Sens 22.6 H (0-14) pg/ml B-Natriuretic Peptide 899 H (0-100) pg/ml Urine Protein (Negative) Urine WBC (0-5) /hpf Ur Epithelial Cells (0-5) /lpf Amorphous Sediment (None Prsent) Urine Mucus (None Prsent) 06/12/22 06/12/22 06/13/22 Range/Units 20:03 20:18 01:42 RBC 2.87 L (4.20-5.40) M/uL Hgb 7.4 L (12.0-16.0) g/dl Hct 25.3 L (37.0-47.0) % MCHC 29.2 L (32.0-36.0) g/dL RDW Std Deviation 58.1 H (36.4-46.3) fL RDW Coeff of Pascual 17.9 H (11.5-14.5) % Neut # (Auto) (1.40-6.50) K/uL Lincoln # (Auto) 0.71 H (0.11-0.59) K/uL PT (9.0-12.0) Seconds INR (0.9-1.1) Glucose (70-99(Fasting)) mg/dl POC Glucose 130 H (70-99) mg/dl Alkaline Phosphatase (34-104) U/L Troponin I High Sens 37.5 H D (0-14) pg/ml B-Natriuretic Peptide (0-100) pg/ml Urine Protein (Negative) Urine WBC (0-5) /hpf Ur Epithelial Cells (0-5) /lpf Amorphous Sediment (None Prsent) Urine Mucus (None Prsent) 06/13/22 06/13/22 06/13/22 Range/Units 01:42 01:42 01:42 RBC (4.20-5.40) M/uL Hgb (12.0-16.0) g/dl Hct (37.0-47.0) % MCHC (32.0-36.0) g/dL RDW Std Deviation (36.4-46.3) fL RDW Coeff of Pascual (11.5-14.5) % Neut # (Auto) (1.40-6.50) K/uL Lincoln # (Auto) (0.11-0.59) K/uL PT 13.0 H (9.0-12.0) Seconds INR 1.2 H (0.9-1.1) Glucose 109 H (70-99(Fasting)) mg/dl POC Glucose (70-99) mg/dl Alkaline Phosphatase (34-104) U/L Troponin I High Sens 50.4 H* D (0-14) pg/ml B-Natriuretic Peptide (0-100) pg/ml Urine Protein (Negative) Urine WBC (0-5) /hpf Ur Epithelial Cells (0-5) /lpf Amorphous Sediment (None Prsent) Urine Mucus (None Prsent) 06/13/22 06/13/22 06/13/22 Range/Units 07:18 07:34 11:18 RBC (4.20-5.40) M/uL Hgb (12.0-16.0) g/dl Hct (37.0-47.0) % MCHC (32.0-36.0) g/dL RDW Std Deviation (36.4-46.3) fL RDW Coeff of Pascual (11.5-14.5) % Neut # (Auto) (1.40-6.50) K/uL Lincoln # (Auto) (0.11-0.59) K/uL PT (9.0-12.0) Seconds INR (0.9-1.1) Glucose (70-99(Fasting)) mg/dl POC Glucose 117 H 113 H (70-99) mg/dl Alkaline Phosphatase (34-104) U/L Troponin I High Sens 44.0 H (0-14) pg/ml B-Natriuretic Peptide (0-100) pg/ml Urine Protein (Negative) Urine WBC (0-5) /hpf Ur Epithelial Cells (0-5) /lpf Amorphous Sediment (None Prsent) Urine Mucus (None Prsent) Diagnostic Findings Chest X-Ray 06/12/22 12:29 XR chest 1V portable CLINICAL HISTORY: weakness TECHNIQUE: Single frontal radiograph of the chest was obtained. Comparison: None available at the time of this dictation. FINDINGS: Exam is limited by underpenetration. Calcified aortic knob is seen. Faint right lower lung airspace opacity noted. Likely small bilateral pleural effusions. IMPRESSION: Cardiomegaly is seen with small bilateral pleural effusions. Right lower lung airspace opacity may represent atelectasis, pneumonia, and/or aspiration. ACT 112: Negative or not required by law. Electronically signed by: Scottie Pearl M.D. 06/12/2022 1:09 PM PG Care Time/CCT Total # of Minutes Spent Total Time Spent with Patient: Total time spent is greater than 50% in coordination of care (as documented) at patient's floor/unit and/or counseling patient: Coding Level of Care Code 01547 SUB INP/OBS CARE 2/35MIN Diagnoses Shortness of breath R06.02 Anemia D64.9 Type 2 diabetes mellitus E11.9 Diabetes mellitus shelter insulin use: without computer terminal operator use Diabetes mellitus complication status: without complication Benign essential hypertension I10 Dyslipidemia E78.5 Atrial fibrillation I48.91 CVA (cerebral vascular accident) I63.9 Carotid stenosis, bilateral I65.23 Hypothyroidism E03.9 Hypothyroidism type: unspecified Major depressive disorder F33.41 Major depression recurrence: recurrent Active/Remission status: in partial remission (3) Type 2 diabetes mellitus Diabetes mellitus shelter insulin use: without shelter use Diabetes mellitus complication status: without complication Qualified Code(s): E11.9 - Type 2 diabetes mellitus without complications (9) Hypothyroidism Hypothyroidism type: unspecified Qualified Code(s): E03.9 - Hypothyroidism, unspecified (10) Major depressive disorder Major depression recurrence: recurrent Active/Remission status: in partial remission Qualified Code(s): F33.41 - Major depressive disorder, recurrent, in partial remission
[2022-06-13] MEDS: ACETAMINOPHEN 325 MG TAB PO PRN (12:46)
[2022-06-13] MEDS ORDERED: SODIUM CHLORIDE 0.9% 250 ML IV PRN (12:47)
[2022-06-13] MEDS ORDERED: PERFLUTREN LIPID MICROSPHERE (DEFINITY) IV ONE (13:32)
--- NOTE | 2022-06-13 15:29 | XCELERA ---
[id number]
[2022-06-13] MEDS: MELATONIN 3 MG TAB PO PRN (20:38)
[2022-06-14 03:14] LABS: Basophils # (auto) 0.02 K/uL (0-0.2); Basophils % (auto) 0.3 %; Eosinophils # (auto) 0.26 K/uL (0-0.50); Eosinophils % (auto) 3.7 %; Hematocrit (blood only) 26.8 % (37.0-47.0); Hemoglobin 8.2 g/dl (12.0-16.0); Immature Granulocytes # (auto) 0.02 K/uL (0.01-0.20); Immature Granulocytes % (auto) 0.3 %; Lymphocytes # (auto) 1.79 K/uL (1.2-3.4); Lymphocytes % (auto) 25.3 %; Mean Corpuscular Hemoglobin 27.2 pg (25.0-34.0); Mean Corpuscular Hgb Conc 30.6 g/dL (32.0-36.0); Mean Corpuscular Volume 88.7 fL (80.0-100.0); Mean Platelet Volume 10.6 fL (9.4-12.4); Monocytes % (auto) 11.3 %; Neutrophils # (auto) 4.19 K/uL (1.40-6.50); Neutrophils % (auto) 59.1 %; Platelet Count 227 K/uL (130-400); RDW Coefficient of Variation 17.2 % (11.5-14.5); RDW Standard Deviation 55.3 fL (36.4-46.3); Red Blood Count 3.02 M/uL (4.20-5.40); White Blood Count 7.08 K/ul (4.8-10.8)
[2022-06-14 03:30] LABS: Albumin Globulin Ratio 1.3 (0.9-2); Albumin Level 3.4 gm/dl (3.4-5.0); BUN Creatinine Ratio 18.4 (10-20); Bilirubin,Total 0.8 mg/dl (0.2-1.0); Calcium 8.6 mg/dl (8.5-10.1); Creatinine Clr Calc Pharmacy 34.1 ml/min; Est GFR (African American) 47.7 ml/min; Est GFR (Non-African American) 41.2 ml/min; Globulin 2.7 gm/dl (2.5-4.0); Magnesium 1.8 mg/dl (1.7-2.4); Potassium 3.5 mmol/L (3.5-5.1); Total Protein 6.1 gm/dl (6.0-8.3)
[2022-06-14] MEDS: INSULIN ASPART PER UNIT CHARGE SC SCH ×4 (07:29→20:52)
[2022-06-14] MEDS: LEVOTHYROXINE SODIUM 25 MCG TABLET PO SCH (08:30)
[2022-06-14] MEDS: ASPIRIN 81 MG ECTAB PO SCH (08:30)
[2022-06-14] MEDS: amLODIPine BESYLATE 5 MG TAB PO SCH (08:30)
[2022-06-14] MEDS: LOSARTAN POTASSIUM 50 MG TAB PO SCH ×2 (08:30→20:50)
[2022-06-14] MEDS: METOPROLOL SUCC 50MG EXT REL TAB PO SCH (08:30)
[2022-06-14] MEDS: ATORVASTATIN 40 MG TAB PO SCH (08:31)
[2022-06-14] MEDS: ESCITALOPRAM OXALATE 10 MG TAB PO SCH (08:31)
[2022-06-14] MEDS: LANTUS PER UNIT CHARGE SQ SCH ×2 (08:32→20:53)
[2022-06-14] MEDS: FUROSEMIDE 40 MG/4 ML VIAL IV SCH (09:09)
--- NOTE | 2022-06-14 11:47 | Hospitalist Progress Note ---
Date of Service June 14, 2022 Assessment & Plan (1) Shortness of breath: Plan: -On exertion Unclear etiology but more likely to be anemia related since she is feeling much better today in response to blood transfusion that she received yesterday 06/13. Not hypoxic, not short of breath at rest. Hemodynamically stable. Patient has experienced progressive dyspnea on exertion over the past 2 months. On admission, she was noted to have bilateral pleural effusion, elevated BNP and that she was ordered a dose of Lasix. With diuretic therapy, she has not noticed any improvement in her shortness of breath on exertion. Her hemoglobin yesterday was 7.4, which improved to 8.2 with 1 unit of blood transfusion Noted that her hemoglobin has been trending down slowly since February 2022 from 12 to now 7.4. She is on Eliquis and has reported some black stools in the past 2 to 3 days. Her iron pills were blamed for her black stools. I will hold her Eliquis until a stool guaiac is done. Patient is constipated and has not had a bowel movement yet. We will treat her constipation. Echocardiogram findings reviewed We will consider a stress test in near future (2) Anemia: Plan: This seems to be the reason for her dyspnea on exertion Hemoglobin improved from 7.4-8.2 with 1 unit of blood transfusion Clinically, patient feels much better in response to the transfusion. I mproved dyspnea on exertion, improved fatigue, not feeling chilly anymore, not hearing her heart pounding anymore. Patient reports black stools in the last few days We will hold Eliquis for the time being until stool guaiac results available fecal occult blood test ordered but the patient has not had a bowel movement Ordered stool softeners so we can get a sample for occult blood testing -Continue PO iron (3) Type 2 diabetes mellitus: Plan: -Hold metformin -Monitor BSG ACHS, goal is 110-140 -Start with 5 units lantus BID, correction factor of 50 with carb ratio of 15 -Adjust regimen as needed (4) Benign essential hypertension: Plan: -Blood pressure stable -Continue amlodipine, metoprolol, and Losartan (5) Dyslipidemia: Plan: -Continue statin (6) Atrial fibrillation: Plan: -Currently rate controlled -Continue metoprolol Hold Eliquis in the setting of black stools, dyspnea on exertion, worsening an emia (7) CVA (cerebral vascular accident): Plan: -No residual weakness -Continue Aspirin, statin Hold Eliquis because anemic, has black stools, has shortness of breath on exertion (8) Carotid stenosis, bilateral: Plan: -S/P left carotid endarterectomy at [facility] in November of 2021 -Continue aspirin, statin Hold Eliquis (9) Hypothyroidism: Plan: -TSH WNL today -Continue levothyroxine (10) Major depressive disorder: Plan: -Continue Lexapro Plan Spoke to daughter, Barbie Zaman, on the phone. Updated her about the plan. Her dyspnea on exertion seems to be secondary to anemia. Since she had black stools, Eliquis is being held. Once the stool guaiac has resulted, decision can be made about continuing or discontinuing the Eliquis. She is on Eliquis because of A-fib and a history of stroke. Monitor hemoglobin to see if she needs further transfusion. Admission and Anticipated Discharge Date Admission Date: June 12, 2022 Subjective Patient states that she feels much better today. She was able to go to the bathroom and come back without feeling short of breath. Her fatigue has improved considerably. She had noticed that over the past few weeks, she was always feeling cold. Last night was the first night in a long time that she was warm. She also did not hear the pounding of her heart that she has been hearing every night. Overall, she is feeling much better today. Review of Systems Review of Systems: All systems reviewed & are unremarkable except as noted in Subjective Physical Exam Physical Exam: General: Awake, conversant Heart: S1, S2/regular rate and rhythm, no murmur rubs or gallops Lungs: Clear to auscultation bilaterally. Normal effort Abdomen: Soft/nontender/nondistended. No hepatosplenomegaly Extremities: No clubbing/cyanosis. No edema Behavior: Appropriate, cooperative Results & Data Results & Data Vital Signs (Past 12 Hours) Vital Signs Temp Pulse Pulse Resp BP BP Pulse Ox 06/14/22 11:31 36.6 C 81 18 123/66 94 06/14/22 11:10 06/14/22 07:44 36.8 C 83 18 144/68 H 92 06/14/22 07:28 70 06/14/22 03:00 36.8 C 74 18 124/66 93 O2 Del Method 06/14/22 11:31 Room Air 06/14/22 11:10 Room Air 06/14/22 07:44 Room Air 06/14/22 07:28 06/14/22 03:00 Room Air PG Care Time/CCT Total # of Minutes Spent Total Time Spent with Patient: Total time spent is greater than 50% in coordination of care (as documented) at patient's floor/unit and/or counseling patient: Coding Level of Care Code 16897 SUB INP/OBS CARE 2/35MIN Diagnoses Shortness of breath R06.02 Anemia D64.9 Type 2 diabetes mellitus E11.9 Diabetes mellitus long term care phlebotomist insulin use: without long term care phlebotomist use Diabetes mellitus complication status: without complication Benign essential hypertension I10 Dyslipidemia E78.5 Atrial fibrillation I48.91 CVA (cerebral vascular accident) I63.9 Carotid stenosis, bilateral I65.23 Hypothyroidism E03.9 Hypothyroidism type: unspecified Major depressive disorder F33.41 Major depression recurrence: recurrent Active/Remission status: in partial remission (3) Type 2 diabetes mellitus Diabetes mellitus long term care phlebotomist insulin use: without retirement use Diabetes mellitus complication status: without complication Qualified Code(s): E11.9 - Type 2 diabetes mellitus without complications (9) Hypothyroidism Hypothyroidism type: unspecified Qualified Code(s): E03.9 - Hypothyroidism, unspecified (10) Major depressive disorder Major depression recurrence: recurrent Active/Remission status: in partial remission Qualified Code(s): F33.41 - Major depressive disorder, recurrent, in partial remission
[2022-06-14] MEDS: POLYETHYLENE (MIRALAX) 17 GM PACK PO SCH (12:09)
[2022-06-14] MEDS: DOCUSATE SODIUM/SENNA 50/8.6MG TAB PO SCH (12:09)
[2022-06-14] MEDS: FERROUS GLUCONATE 324 MG TAB PO SCH (17:06)
[2022-06-14] MEDS: MELATONIN 3 MG TAB PO PRN (20:55)
[2022-06-15 07:02] LABS: Basophils # (auto) 0.02 K/uL (0-0.2); Basophils % (auto) 0.3 %; Eosinophils # (auto) 0.21 K/uL (0-0.50); Eosinophils % (auto) 3.4 %; Hematocrit (blood only) 27.8 % (37.0-47.0); Hemoglobin 8.4 g/dl (12.0-16.0); Immature Granulocytes # (auto) 0.03 K/uL (0.01-0.20); Immature Granulocytes % (auto) 0.5 %; Lymphocytes # (auto) 1.41 K/uL (1.2-3.4); Lymphocytes % (auto) 22.6 %; Mean Corpuscular Hemoglobin 27.1 pg (25.0-34.0); Mean Corpuscular Hgb Conc 30.2 g/dL (32.0-36.0); Mean Corpuscular Volume 89.7 fL (80.0-100.0); Mean Platelet Volume 10.3 fL (9.4-12.4); Monocytes # (auto) 0.54 K/uL (0.11-0.59); Monocytes % (auto) 8.7 %; Neutrophils # (auto) 4.03 K/uL (1.40-6.50); Neutrophils % (auto) 64.5 %; Platelet Count 234 K/uL (130-400); RDW Coefficient of Variation 17.1 % (11.5-14.5); RDW Standard Deviation 55.7 fL (36.4-46.3); White Blood Count 6.24 K/ul (4.8-10.8)
[2022-06-15 07:15] LABS: Albumin Globulin Ratio 1.3 (0.9-2); Albumin Level 3.5 gm/dl (3.4-5.0); BUN Creatinine Ratio 21.1 (10-20); Bilirubin,Total 0.6 mg/dl (0.2-1.0); Calcium 8.7 mg/dl (8.6-10.3); Creatinine Clr Calc Pharmacy 39.8 ml/min; Est GFR (African American) 56.3 ml/min; Est GFR (Non-African American) 48.6 ml/min; Globulin 2.8 gm/dl (2.5-4.0); Magnesium 1.9 mg/dl (1.7-2.4); Potassium 3.5 mmol/L (3.5-5.1); Total Protein 6.3 gm/dl (6.0-8.3)
[2022-06-15] MEDS: INSULIN ASPART PER UNIT CHARGE SC SCH ×4 (07:53→20:45)
[2022-06-15] MEDS: ASPIRIN 81 MG ECTAB PO SCH (10:31)
[2022-06-15] MEDS: amLODIPine BESYLATE 5 MG TAB PO SCH (10:31)
[2022-06-15] MEDS: DOCUSATE SODIUM/SENNA 50/8.6MG TAB PO SCH (10:32)
[2022-06-15] MEDS: ATORVASTATIN 40 MG TAB PO SCH (10:32)
[2022-06-15] MEDS: LANTUS PER UNIT CHARGE SQ SCH ×2 (10:33→20:46)
[2022-06-15] MEDS: ESCITALOPRAM OXALATE 10 MG TAB PO SCH (10:33)
[2022-06-15] MEDS: LOSARTAN POTASSIUM 50 MG TAB PO SCH ×2 (10:34→20:44)
[2022-06-15] MEDS: POLYETHYLENE (MIRALAX) 17 GM PACK PO SCH (10:34)
[2022-06-15] MEDS: METOPROLOL SUCC 50MG EXT REL TAB PO SCH (10:34)
[2022-06-15] MEDS: LEVOTHYROXINE SODIUM 25 MCG TABLET PO SCH (10:45)
--- NOTE | 2022-06-15 17:52 | Hospitalist Progress Note ---
Date of Service June 15, 2022 Assessment & Plan (1) Shortness of breath: Plan: -On exertion Unclear etiology but more likely to be anemia related -She continues to feel well on 06/15 after having a blood transfusion on 06/13. Not hypoxic, not short of breath at rest. Hemodynamically stable. Patient has experienced progressive dyspnea on exertion over the past 2 months. On admission, she was noted to have bilateral pleural effusion, elevated BNP and that she was ordered a dose of Lasix. With diuretic therapy, she has not noticed any improvement in her shortness of breath on exertion. Her hemoglobin yesterday was 7.4, which improved to 8.2 with 1 unit of blood transfusion Noted that her hemoglobin has been trending down slowly since February 2022 from 12 to now 7.4. She is on Eliquis and has reported some black stools in the past 2 to 3 days. Her iron pills were blamed for her black stools. I will hold her Eliquis until a stool guaiac is done. Patient is constipated and has not had a bowel movement yet. We will treat her constipation. Echocardiogram findings reviewed We will consider a stress test in near future -she will also require a colonoscopy reviewed her records, interviewed patient, Given her history of stroke, and carotid endarectomy, patient is high risk if her hemoglobin decreases. will monitor for another day, if she is doing well, will discharge. (2) Anemia: Plan: This seems to be the reason for her dyspnea on exertion Hemoglobin improved from 7.4-8.2 with 1 unit of blood transfusion Clinically, patient feels much better in response to the transfusion. Improved dyspnea on exertion, improved fatigue, not feeling chilly anymore, not hearing her heart pounding anymore. Patient reports black stools in the last few days We will hold Eliquis for the time being until stool guaiac results available fecal occult blood test ordered but the patient has not had a bowel movement Ordered stool softeners so we can get a sample for occult blood testing -Continue PO iron (3) Type 2 diabetes mellitus: Plan: -Hold metformin -Monitor BSG ACHS, goal is 110-140 -Start with 5 units lantus BID, correction factor of 50 with carb ratio of 15 -Adjust regimen as needed (4) Benign essential hypertension: Plan: -Blood pressure stable -Continue amlodipine, metoprolol, and Losartan (5) Dyslipidemia: Plan: -Continue statin (6) Atrial fibrillation: Plan: -Currently rate controlled -Continue metoprolol Hold Eliquis in the setting of black stools, dyspnea on exertion, worsening anemia (7) CVA (cerebral vascular accident): Plan: -No residual weakness -Continue Aspirin, statin Hold Eliquis because anemic, has black stools, has shortness of breath on exertion (8) Carotid stenosis, bilateral: Plan: -S/P left carotid endarterectomy at [facility] in November of 2021 -Continue aspirin, statin Hold Eliquis (9) Hypothyroidism: Plan: -TSH WNL today -Continue levothyroxine (10) Major depressive disorder: Plan: -Continue Lexapro Plan Spoke to daughter, Barbie Zaman, on the phone. Updated her about the plan. Her dyspnea on exertion seems to be secondary to anemia. Since she had black stools, Eliquis is being held. Once the stool guaiac has resulted, decision can be made about continuing or discontinuing the Eliquis. She is on Eliquis because of A-fib and a history of stroke. Admission and Anticipated Discharge Date Admission Date: June 14, 2022 Subjective Patient reports feeling well today. She was able to ambulate much better and reported no shortness of breath. Review of Systems Review of Systems: All systems reviewed & are unremarkable except as noted in HPI & below Physical Exam Physical Exam: General: Awake, conversant Heart: S1, S2/regular rate and rhythm, no murmur rubs or gallops Lungs: Clear to auscultation bilaterally. Normal effort Abdomen: Soft/nontender/nondistended. No hepatosplenomegaly Extremities: No clubbing/cyanosis. No edema Behavior: Appropriate, cooperative Results & Data Results & Data Vital Signs (Past 12 Hours) Vital Signs Temp Pulse Pulse Resp BP BP Pulse Ox 06/15/22 15:34 36.7 C 80 18 134/50 L 94 06/15/22 15:08 71 06/15/22 11:39 36.7 C 73 14 149/54 H 95 06/15/22 08:37 69 06/15/22 07:41 36.8 C 72 16 170/75 H 96 O2 Del Method 06/15/22 15:34 Room Air 06/15/22 15:08 06/15/22 11:39 Room Air 06/15/22 08:37 06/15/22 07:41 Room Air PG Care Time/CCT Total # of Minutes Spent Total Time Spent with Patient: Total time spent is greater than 50% in coordination of care (as documented) at patient's floor/unit and/or counseling patient: Coding Level of Care Code 60229 SUB INP/OBS CARE 3/50MIN Diagnoses Shortness of breath R06.02 Anemia D64.9 Type 2 diabetes mellitus E11.9 Diabetes mellitus complication status: without complication Diabetes mellitus correction insulin use: without correction use Benign essential hypertension I10 Dyslipidemia E78.5 Atrial fibrillation I48.91 CVA (cerebral vascular accident) I63.9 Carotid stenosis, bilateral I65.23 Hypothyroidism E03.9 Hypothyroidism type: unspecified Major depressive disorder F33.41 Active/Remission status: in partial remission Major depression recurrence: recurrent (3) Type 2 diabetes mellitus Diabetes mellitus complication status: without complication Diabetes mellitus correction insulin use: without correction use Qualified Code(s): E11.9 - Type 2 diabetes mellitus without complications (9) Hypothyroidism Hypothyroidism type: unspecified Qualified Code(s): E03.9 - Hypothyroidism, unspecified (10) Major depressive disorder Active/Remission status: in partial remission Major depression recurrence: recurrent Qualified Code(s): F33.41 - Major depressive disorder, recurrent, in partial remission
[2022-06-15] MEDS: MELATONIN 3 MG TAB PO PRN (20:45)
[2022-06-15] MEDS: ACETAMINOPHEN 325 MG TAB PO PRN (20:45)
[2022-06-16] MEDS ORDERED: LEVOTHYROXINE SODIUM 25 MCG TABLET PO SCH (06:30)
[2022-06-16] MEDS: INSULIN ASPART PER UNIT CHARGE SC SCH ×2 (07:52→11:41)
[2022-06-16] MEDS: LANTUS PER UNIT CHARGE SQ SCH (07:52)
[2022-06-16] MEDS: DOCUSATE SODIUM/SENNA 50/8.6MG TAB PO SCH (07:59)
[2022-06-16] MEDS: POLYETHYLENE (MIRALAX) 17 GM PACK PO SCH (07:59)
[2022-06-16] MEDS: LOSARTAN POTASSIUM 50 MG TAB PO SCH (08:00)
[2022-06-16] MEDS: ASPIRIN 81 MG ECTAB PO SCH (08:00)
[2022-06-16] MEDS: ATORVASTATIN 40 MG TAB PO SCH (08:00)
[2022-06-16] MEDS: ESCITALOPRAM OXALATE 10 MG TAB PO SCH (08:00)
[2022-06-16] MEDS: amLODIPine BESYLATE 5 MG TAB PO SCH (08:00)
[2022-06-16] MEDS: METOPROLOL SUCC 50MG EXT REL TAB PO SCH (08:00)
[2022-06-16 09:03] LABS: Hematocrit (blood only) 29.6 % (37.0-47.0); Hemoglobin 8.9 g/dl (12.0-16.0); Mean Corpuscular Hemoglobin 26.9 pg (25.0-34.0); Mean Corpuscular Hgb Conc 30.1 g/dL (32.0-36.0); Mean Corpuscular Volume 89.4 fL (80.0-100.0); Mean Platelet Volume 10.7 fL (9.4-12.4); Platelet Count 260 K/uL (130-400); RDW Coefficient of Variation 17.2 % (11.5-14.5); RDW Standard Deviation 55.2 fL (36.4-46.3); Red Blood Count 3.31 M/uL (4.20-5.40); White Blood Count 5.75 K/ul (4.8-10.8)
[2022-06-16 09:15] LABS: BUN Creatinine Ratio 19.8 (10-20); Calcium 8.9 mg/dl (8.6-10.3); Est GFR (African American) 61.7 ml/min; Est GFR (Non-African American) 53.3 ml/min; Potassium 3.5 mmol/L (3.5-5.1)
--- NOTE | 2022-06-16 10:11 | Gastrointestinal Consultation ---
Date of Consultation June 16, 2022 Assessment & Plan (1) Anemia: (2) SOB (shortness of breath): Plan Patient is improving clinically. No further melena reported and H&H remains stable. -Discussed outpatient EGD and colonoscopy. Patient declines invasive work up. -Recommend PPI prophylaxis with Pantoprazole 40 mg daily. -Supportive care per primary team. Thank you for allowing us to participate in the care of this patient. If you have any questions or concerns, please do not hesitate to contact us. Supervising Physician Co-Signing Physician Notes Agree with YADIEL River as above Abd: Soft, NT, ND, +BS Continue current therapy and supportive care Patient is refusing EGD/Colonoscopy at this time History of Present Illness Reason for Consultation: Anemia Requesting Physician: Dr. Carvalho Attending Physician: Lenny Carvalho History of Present Illness Patient is a 77 y.o. female with a history of DM, HLD, CKD, CVA, and A Fib admitted with shortness of breath. She was found to be anemic and was having melanotic stool. She was heme positive as well. Eliquis was held and her stool was reportedly brown this morning per patient. She denies any abdominal pain, diarrhea, n/v or abdominal pain. Tolerating diet. H&H has remained stable over the past 48 hours. Patient verbalizes desire to go home today. Allergies Allergy/AdvReac Type Severity Reaction Status Date / Time tizanidine Allergy Severe Edema Verified 05/31/22 10:25 face/lips/tongue sulfamethoxazole Allergy Mild itching Verified 05/31/22 10:25 [From Bactrim] trimethoprim [From Bactrim] Allergy Mild itching Verified 05/31/22 10:25 amlodipine Allergy Verified 05/31/22 10:25 hydrochlorothiazide AdvReac Mild Cracking Verified 05/31/22 10:25 of lips lisinopril AdvReac Unknown Verified 05/31/22 10:25 Home Medications Medication Instructions Recorded Confirmed Type blood sugar diagnostic ([employer] #100 ea 03/17/21 05/31/22 Rx Ultra Test strips) levothyroxine 25 mcg tablet 25 mcg PO DAILY #90 tabs 10/05/21 06/12/22 Rx aspirin 81 mg tablet,delayed 81 mg PO DAILY 08/29/22 03/20/23 History release (Adult Aspirin Regimen) atorvastatin 80 mg tablet 80 mg PO DAILY #90 tabs 12/19/21 06/12/22 Rx furosemide 40 mg tablet (Lasix) 40 mg PO DAILY PRN weight gain, 02/28/22 06/12/22 Rx shortness of breath, swelling #30 tabs metoprolol succinate 50 mg 50 mg PO DAILY #90 tabs 03/23/22 06/12/22 Rx tablet,extended release 24 hr apixaban 5 mg tablet (Eliquis) 5 mg PO BID #60 tabs 03/29/22 06/12/22 Rx losartan 50 mg tablet 50 mg PO BID #60 tabs 03/29/22 06/12/22 Rx escitalopram oxalate 5 mg tablet 5 mg PO DAILY #90 tabs 04/10/22 06/12/22 Rx cholecalciferol (vitamin D3) 50 50 mcg PO DAILY #90 tabs 04/14/22 06/12/22 Rx mcg (2,000 unit) tablet vitamin B complex (B 1 tab PO DAILY 05/02/22 06/12/22 History Complex-Vitamin B12 tablet) amlodipine 5 mg tablet 10 mg PO DAILY #60 tabs 05/31/22 06/12/22 Rx ferrous gluconate 324 mg (38 mg 324 mg PO Q2D #30 tabs 06/01/22 06/12/22 Rx iron) tablet Patient History Medical History Anxiety Atrial fibrillation Benign essential hypertension Cardiomyopathy Carotid stenosis, bilateral CKD stage 3 due to type 2 diabetes mellitus Dyslipidemia Hypothyroidism Intracranial vascular disease Major depressive disorder Mitral regurgitation and mitral stenosis Pulmonary hypertension Severe obesity Type 2 diabetes mellitus Vitamin D deficiency Surgical History H/O endarterectomy LEFT SIDE History of partial hysterectomy Status post trigger finger release Family History Father Colorectal cancer Mother Cancer Social History Smoking Status: Never smoker Hx Alcohol Use: No Hx Substance Use: No Preferred Language: Malian Communication Ability: Effective Visual Impairment: Limited Hearing Ability: Normal marital status: / Current Living Situation: Alone current occupational status: employed Feels Safe at Home: Yes Childhood Exposure to Second-Hand Smoke: No Dental Care, Regularly: No Physical Activity Frequency: Does not Exercise Seatbelt Use: always Sunscreen Use: Yes Assistive Devices: None Review of Systems Review of Systems: All systems reviewed & are unremarkable except as noted in HPI & below Physical Exam Constitutional: WD/WN, vitals as above Respiratory: normal respiratory effort, lungs clear to auscultation Cardiovascular: Rate/Rhythm: regular rate and regular rhythm Gastrointestinal (Abdomen): normal bowel sounds, soft, nontender, no hepatosplenomegaly Psychiatric: A+Ox3, euthymic affect Results & Data Vital Signs (Past 12 Hours) Vital Signs Temp Pulse Pulse Resp BP Pulse Ox O2 Del Method 06/16/22 07:49 62 06/16/22 07:41 36.3 C L 77 18 138/71 93 Room Air 06/16/22 02:29 36.7 C 63 18 124/65 93 Room Air 06/15/22 22:56 36.7 C 61 18 125/55 L 94 Room Air Diagnostic Findings Laboratory Results WBC 5.75 K/ul (4.8-10.8) 06/16/22 08:23 RBC 3.31 M/uL (4.20-5.40) L 06/16/22 08:23 Hgb 8.9 g/dl (12.0-16.0) L 06/16/22 08:23 Hct 29.6 % (37.0-47.0) L 06/16/22 08:23 MCV 89.4 fL (80.0-100.0) 06/16/22 08:23 MCH 26.9 pg (25.0-34.0) 06/16/22 08:23 MCHC 30.1 g/dL (32.0-36.0) L 06/16/22 08:23 RDW Std Deviation 55.2 fL (36.4-46.3) H 06/16/22 08:23 RDW Coeff of Pascual 17.2 % (11.5-14.5) H 06/16/22 08:23 Plt Count 260 K/uL (130-400) 06/16/22 08:23 MPV 10.7 fL (9.4-12.4) 06/16/22 08:23 Immature Gran % (Auto) 0.5 % 06/15/22 06:33 Neut % (Auto) 64.5 % 06/15/22 06:33 Lymph % (Auto) 22.6 % 06/15/22 06:33 [place] % (Auto) 8.7 % 06/15/22 06:33 Eos % (Auto) 3.4 % 06/15/22 06:33 Baso % (Auto) 0.3 % 06/15/22 06:33 Neut # (Auto) 4.03 K/uL (1.40-6.50) 06/15/22 06:33 Lymph # (Auto) 1.41 K/uL (1.2-3.4) 06/15/22 06:33 [place] # (Auto) 0.54 K/uL (0.11-0.59) 06/15/22 06:33 Eos # (Auto) 0.21 K/uL (0-0.50) 06/15/22 06:33 Baso # (Auto) 0.02 K/uL (0-0.2) 06/15/22 06:33 Immature Gran # (Auto) 0.03 K/uL (0.01-0.20) 06/15/22 06:33 Polychromasia 1+ 06/13/22 01:42 PT 13.0 Seconds (9.0-12.0) H 06/13/22 01:42 INR 1.2 (0.9-1.1) H 06/13/22 01:42 Sodium 140 mmol/L (136-145) 06/16/22 08:23 Potassium 3.5 mmol/L (3.5-5.1) 06/16/22 08:23 Chloride 105 mmol/L (98-107) 06/16/22 08:23 Carbon Dioxide 30 mmol/L (21-32) 06/16/22 08:23 Anion Gap 5 (3-11) 06/16/22 08:23 BUN 20 mg/dl (6-23) 06/16/22 08:23 Creatinine 1.01 mg/dl (0.6-1.2) 06/16/22 08:23 Est Cr Clr Drug Dosing 43.0 ml/min 06/16/22 08:23 Est GFR ( Amer) 61.7 ml/min 06/16/22 08:23 Est GFR (Non-Af Amer) 53.3 ml/min 06/16/22 08:23 BUN/Creatinine Ratio 19.8 (10-20) 06/16/22 08:23 Glucose 127 mg/dl (70-99(Fasting)) H 06/16/22 08:23 POC Glucose 111 mg/dl (70-99) H 06/16/22 07:46 Calcium 8.9 mg/dl (8.6-10.3) 06/16/22 08:23 Magnesium 1.9 mg/dl (1.7-2.4) 06/15/22 06:33 Total Bilirubin 0.6 mg/dl (0.2-1.0) 06/15/22 06:33 AST 15 U/L (13-39) 06/15/22 06:33 ALT 9 U/L (7-52) 06/15/22 06:33 Alkaline Phosphatase 88 U/L (34-104) 06/15/22 06:33 Troponin I High Sens 48.4 pg/ml (0-14) H 06/14/22 02:25 B-Natriuretic Peptide 899 pg/ml (0-100) H 06/12/22 14:13 Total Protein 6.3 gm/dl (6.0-8.3) 06/15/22 06:33 Albumin 3.5 gm/dl (3.4-5.0) 06/15/22 06:33 Globulin 2.8 gm/dl (2.5-4.0) 06/15/22 06:33 Albumin/Globulin Ratio 1.3 (0.9-2) 06/15/22 06:33 TSH 3.352 uIu/ml (0.300-4.500) 06/12/22 12:40 Urine Color Yellow 06/12/22 12:37 Urine Appearance Clear (Clear) 06/12/22 12:37 Urine pH 6.0 (4.5-7.5) 06/12/22 12:37 Ur Specific Ranger 1.025 (1.000-1.030) 06/12/22 12:37 Urine Protein 2+ (Negative) H 06/12/22 12:37 Urine Glucose (UA) Negative (Negative) 06/12/22 12:37 Urine Ketones Negative (Negative) 06/12/22 12:37 Urine Blood Negative (Negative) 06/12/22 12:37 Urine Nitrite Negative (Negative) 06/12/22 12:37 Urine Bilirubin Negative (Negative) 06/12/22 12:37 Urine Urobilinogen Negative (Negative) 06/12/22 12:37 Ur Leukocyte Esterase Negative (Negative) 06/12/22 12:37 Urine RBC 0-4 /hpf (0-4) 06/12/22 12:37 Urine WBC 5-10 /hpf (0-5) H 06/12/22 12:37 Ur Epithelial Cells 20-30 /lpf (0-5) H 06/12/22 12:37 Amorphous Sediment Present (None Prsent) A 06/12/22 12:37 Urine Bacteria Negative (Negative) 06/12/22 12:37 Urine Mucus Present (None Prsent) A 06/12/22 12:37 Stool Occult Bld Scrn Positive (Negative) A 06/15/22 09:10 SARS-CoV-2, RNA, NAAT NEGATIVE (NEGATIVE) 06/12/22 13:58 Blood Type A Positive 06/12/22 14:13 Antibody Screen NEGATIVE 06/12/22 14:13 Crossmatch See Detail 06/12/22 14:13 Impressions Chest X-Ray 06/12/22 12:29 XR chest 1V portable CLINICAL HISTORY: weakness TECHNIQUE: Single frontal radiograph of the chest was obtained. Comparison: None available at the time of this dictation. FINDINGS: Exam is limited by underpenetration. Calcified aortic knob is seen. Faint right lower lung airspace opacity noted. Likely small bilateral pleural effusions. IMPRESSION: Cardiomegaly is seen with small bilateral pleural effusions. Right lower lung airspace opacity may represent atelectasis, pneumonia, and/or aspiration. ACT 112: Negative or not required by law. Electronically signed by: Scottie Pearl M.D. 06/12/2022 1:09 PM PG Care Time/CCT Total # of Minutes Spent Total Time Spent with Patient: Total time spent is greater than 50% in coordination of care (as documented) at patient's floor/unit and/or counseling patient: Coding Level of Care Code 52821 INT INP/OBS CARE 3/75MIN Diagnoses Anemia D64.9 SOB (shortness of breath) R06.02
--- NOTE | 2022-06-16 14:05 | Hospitalist Progress Note ---
Date of Service June 16, 2022 Assessment & Plan Admission and Anticipated Discharge Date Admission Date: June 14, 2022 Results & Data Results & Data Vital Signs (Past 12 Hours) Vital Signs Temp Pulse Pulse Resp BP BP Pulse Ox 06/16/22 10:53 36.6 C 65 18 124/62 92 06/16/22 07:49 62 06/16/22 07:41 36.3 C L 77 18 138/71 93 06/16/22 02:29 36.7 C 63 18 124/65 93 O2 Del Method 06/16/22 10:53 Room Air 06/16/22 07:49 06/16/22 07:41 Room Air 06/16/22 02:29 Room Air PG Care Time/CCT Total # of Minutes Spent Total Time Spent with Patient: Total time spent is greater than 50% in coordination of care (as documented) at patient's floor/unit and/or counseling patient: Coding Diagnoses
--- NOTE | 2022-06-16 14:07 | Discharge Summary ---
Date of Service June 16, 2022 Admission HPI Per Admitting Provider Christy is a 77 year old female with a PMH significant for recent CVA in October of 2021 without residual weakness, BL carotid artery stenosis S/P left carotid endarterectomy at [facility] in November of 2021, afib on Eliquis, HFpEF (LVEF of 60-65%, and very small pericardial effusion without tamponade as of 05/05/22), HTN, dyslipidemia, DMII, Stage 3 CKD, hypothyroidism, MDD, and anemia who presented to the [facility] ED on 06/12/22 with a chief complaint of SOB and weakness. In the ED the patient was found to be afebrile, initially hypertensive at 170/71, and stable on RA. Labs were remarkable for a CBC with WBC WNL, Hgb of 8.0 (down from 8.3 as of 05/31/22), stable platelets, stable cr at 1.04, BUN of 18, stable electrolytes, Alk phos of 109 (down from 130 as of 06/01/22), initial high sensitivity trop of 16.5, TSH WNL, and UA not suggestive of UTI. Chest xray was read as "Cardiomegaly is seen with small bilateral pleural effusions. Right lower lung airspace opacity may represent atelectasis, pneumonia, and/or aspiration.". Per chart review, the patient was last seen in the [facility] ED on 06/01/22 due to a drop in Hgb from 12 (on 03/21/22) to 8.3 (on 05/31/22) on outpatient testing. She saw her PCP on 05/31/22 due to progressive LAZO and BL leg weakness. Per the clinic note, they were going to talk with Cardiology about scheduling stress testing and had ordered routine labs at that time. Her Hgb came back at 8.3 and there was a recent history of black stools on Eliquis, therefore she was sent to the ED for further evaluation. In the ED the patient was found to be stable with a stable Hgb and Guaiac negative stool. She was discharged home with a prescription for 324 mg PO Ferrous Gluconate BID. AT the time of the exam the patient was resting in no acute distress with her [id number] in no acute distress, history was obtained from both. The patient states that she has experienced progressive LAZO over the past 2 months. She states that at the present time she cannot walk more than a few feet without getting significant SOB. At rest she is asymptomatic and she has been without chest discomfort over the past two months. She denies recent fevers, chills, changes in vision, hearing, taste, and smell, chest pain, cough, pleuritic chest pain, abd pain, nausea, vomiting, diarrhea, dysuria, hematuria, bloody bowel movements, LE swelling and recent trauma. She explains that prior to her CVA last year she was only on natural medications. She denies a previous history of heart disease, CHF, NM, tobacco use, and pulmonary disease. She has had a good appetite and denies recent unintentional weight loss. She has a PRN prescription when she notices increased abdominal swelling, her last dose was approximately 3 days ago. When asked, the patient denies recent abdominal swelling. Since her stroke last year she feels as though she has been more sedentary and not as active. She states that she noticed black stool prior to her PCP appointment on 05/31. They cleared up since but she has noticed them again since being started on oral iron. We discussed code status, she states that she has a living will and wishes to be a DNR/DNI. Principal Diagnosis Anemia Discharge Exam General: Awake, conversant Heart: S1, S2/regular rate and rhythm, no murmur rubs or gallops Lungs: Clear to auscultation bilaterally. Normal effort Abdomen: Soft/nontender/nondistended. No hepatosplenomegaly Extremities: No clubbing/cyanosis. No edema Behavior: Appropriate, cooperative Discharge Data Allergies Allergy/AdvReac Type Severity Reaction Status Date / Time tizanidine Allergy Severe Edema Verified 05/31/22 10:25 face/lips/tongue sulfamethoxazole Allergy Mild itching Verified 05/31/22 10:25 [From Bactrim] trimethoprim [From Bactrim] Allergy Mild itching Verified 05/31/22 10:25 amlodipine Allergy Verified 05/31/22 10:25 hydrochlorothiazide AdvReac Mild Cracking Verified 05/31/22 10:25 of lips lisinopril AdvReac Unknown Verified 05/31/22 10:25 Consultations 06/16/22 09:48 Consult Gastroenterology Routine Hospital Course (1) Shortness of breath: -On exertion Unclear etiology but more likely to be anemia related -She continues to feel well on 06/15 after having a blood transfusion on 06/13. Not hypoxic, not short of breath at rest. Hemodynamically stable. Patient has experienced progressive dyspnea on exertion over the past 2 months. On admission, she was noted to have bilateral pleural effusion, elevated BNP and that she was ordered a dose of Lasix. With diuretic therapy, she has not noticed any improvement in her shortness of breath on exertion. Her hemoglobin yesterday was 7.4, which improved to 8.2 with 1 unit of blood transfusion Noted that her hemoglobin has been trending down slowly since February 2022 from 12 to now 7.4. She is on Eliquis and has reported some black stools in the past 2 to 3 days. Her iron pills were blamed for her black stools. I will hold her Eliquis until a stool guaiac is done. Patient is constipated and has not had a bowel movement yet. We will treat her constipation. Echocardiogram findings reviewed We will consider a stress test in near future -she will also require a colonoscopy however, patient is currently refusing. reviewed her records, interviewed patient, Her hemoglobin has been stable and patient can be discharged. Will continue to hold her eliquis, but patient will likely require to restart this in the near future. Will defer timing to her PCP> Demand ischemia Serum HS troponins of 38-44-48-48 pg/ml in the setting of anemia, AF. EKG with ST and T wave abnormalities in lateral leads. Risk Factor(s): Anemia, AF, chronic diastolic CHF, hypertension Treatment: Transfusion of PRBC's, Toprol XL, Cozaar, Norvasc (2) Anemia: This seems to be the reason for her dyspnea on exertion Hemoglobin improved from 7.4-8.2 with 1 unit of blood transfusion Clinically, patient feels much better in response to the transfusion. Improved dyspnea on exertion, improved fatigue, not feeling chilly anymore, not hearing her heart pounding anymore. Patient reports black stools in the last few days We will hold Eliquis for the time being until stool guaiac results available -Continue PO iron (3) Type 2 diabetes mellitus: -Hold metformin -Monitor BSG ACHS, goal is 110-140 -Start with 5 units lantus BID, correction factor of 50 with carb ratio of 15 -Adjust regimen as needed (4) Benign essential hypertension: -Blood pressure stable -Continue amlodipine, metoprolol, and Losartan (5) Dyslipidemia: -Continue statin (6) Atrial fibrillation: Persistent atrial fibrillation -Currently rate controlled -Continue metoprolol Hold Eliquis in the setting of black stools, dyspnea on exertion, worsening anemia (7) CVA (cerebral vascular accident): -No residual weakness -Continue Aspirin, statin Hold Eliquis because anemic, has black stools, has shortness of breath on exertion (8) Carotid stenosis, bilateral: -S/P left carotid endarterectomy at [facility] in November of 2021 -Continue aspirin, statin Hold Eliquis (9) Hypothyroidism: -TSH WNL today -Continue levothyroxine (10) Major depressive disorder: -Continue Lexapro Total Time Total Time Spent Total Time Spent (In Minutes): 32 Discharge Plan Discharge Items Patient Disposition: Home - Self-Care Reason For Visit: SOB, GENERALIZED WEAKNESS Discharge Diagnosis: anemia Activity: Resume your previous activity Non-emergency contact: Primary Care Provider Call non-emergency contact if: you have any medication questions Follow-up/Referrals: Pao Belcher CRNP [Primary Care Provider] - Diet: Heart Healthy Addtl Attending Provider Instructions: Good afternoon Mrs. Zaman, You were diagnosed with anemia from Gastrointestinal bleeding. This was confirmed as you had dark tarry stools. It may be beneficial to get scopes completed to better see the cause of your bleed. In the short term, will recommend we hold off eliquis. But this should be restarted in the future. You have been tolerating your aspirin, ok to continue. Please followup with your Primary care doctor. You may also benefit from seeing a integrated logistics programs director, once your blood count improves to check on your heart to see if you need a stress test. Will recommend iron tablets in the short term one tablet 3 times a week. It was a pleasure taking care of you. Lenny Carvalho Pending Studies at Discharge: No Stand-Alone Forms: My [employer], Smoking Cessation Medications and DC Order Prescriptions: Continued (DME) OneTouch Ultra Test Strip See Rx Instructions .Route Qty: 100 2RF Rx Instructions: [id number] check bloodsugar once daily levothyroxine 25 mcg tablet 25 mcg PO DAILY Qty: 90 3RF atorvastatin 80 mg tablet 80 mg PO DAILY Qty: 90 3RF metoprolol succinate 50 mg tablet extended release 24 hr 50 mg PO DAILY Qty: 90 3RF escitalopram oxalate 5 mg tablet 5 mg PO DAILY Qty: 90 1RF cholecalciferol (vitamin D3) 50 mcg (2,000 unit) tablet 50 mcg PO DAILY Qty: 90 1RF losartan 50 mg tablet 50 mg PO BID Qty: 60 2RF furosemide [Lasix] 40 mg tablet 40 mg PO DAILY PRN (Reason: weight gain, shortness of breath, swelling) Qty: 30 5RF vitamin B complex [B Complex-Vitamin B12] Tablet 1 tab PO DAILY aspirin [Adult Aspirin Regimen] 81 mg tablet,delayed release (DR/EC) 81 mg PO DAILY amlodipine 5 mg tablet 10 mg PO DAILY Qty: 60 5RF Changed ferrous gluconate 324 mg (38 mg iron) tablet 324 mg PO MOWEFR Qty: 30 0RF Discontinued Eliquis 5 mg tablet 5 mg PO BID Qty: 60 2RF Admission Data Admit Date/Time: 06/14/22 09:40 Attending Provider: Lenny Carvalho Admit Provider: Ish Huber Primary Care Provider: Pao Belcher Other Providers: Mushtaq Sharma Coding Level of Care Code 95410 INP/OBS DISCH >30 MIN Diagnoses Shortness of breath R06.02 Anemia D64.9 Type 2 diabetes mellitus E11.9 Diabetes mellitus complication status: without complication Diabetes mellitus predatory animal exterminator insulin use: without correction use Benign essential hypertension I10 Dyslipidemia E78.5 Atrial fibrillation I48.91 CVA (cerebral vascular accident) I63.9 Carotid stenosis, bilateral I65.23 Hypothyroidism E03.9 Hypothyroidism type: unspecified Major depressive disorder F33.41 Active/Remission status: in partial remission Major depression recurrence: recurrent
[2022-06-16] MEDS ORDERED: IRON SUCROSE 200 MG in 0.9 % SODIUM CHLORIDE 100 ML IV ONE (14:45)
[2022-06-16] MEDS: FERROUS GLUCONATE 324 MG TAB PO SCH (16:02)
== END 2022-06-16 16:55 | disposition home or self-care (01) | DRG 812 ==
LOC: ED 12:10 → 2N 12:10 → SUATTDRO 14:12 → 2N 15:56 → SUATTDRO 06-14 09:40